=== PATIENT | male | born 1995 | race African-American/Black ===

== ENCOUNTER 2019-10-15 18:25 | Emergency (ER) | payer SELFPAY ==
--- NOTE | 2019-10-15 18:44 | ER Document Report ---
HPI - HPI Patient complains to provider of: URI Time Seen by Provider: 10/15/19 18:36 Onset: Other - 3 to 4 weeks Onset/Duration: Persistent Quality of pain: Achy Severity: Moderate Pain Level: 3 Associated Symptoms: Productive cough, Headache, Rhinnorhea, Sinus pain/drainage Exacerbated by: Coughing Relieved by: Denies Similar symptoms previously: Yes Recently seen / treated by doctor: No - ROS ROS below otherwise negative: Yes - CONSTITUTIONAL Constitutional: REPORTS: Chills - EENT EENT: REPORTS: Nasal Drainage-Purulent, Congestion - NEURO Neurology: REPORTS: Headache - RESPIRATORY Respiratory: REPORTS: Coughing - GASTROINTESTINAL Gastrointestinal: DENIES: Abdominal Pain, Nausea, Patient vomiting, Diarrhea, Constipation, Black / Bloody Stools - URINARY Urinary: DENIES: Dysuria, Urgency, Frequency - REPRODUCTIVE Reproductive: DENIES: :, Postmenopausal, Abnormal bleeding / discharge - MUSCULOSKELETAL Musculoskeletal: DENIES: Extremity pain, Back Pain, Neck Pain, Swelling - DERM Skin Color: Normal Skin Problems: None Past Medical History - Social History Smoking Status: Current Every Day Smoker - 4 cigarettes a day Smoking Education Provided: Yes - 4 minutes Frequency of alcohol use: Occasional Drug Abuse: Marijuana Lives with: Friend - Past Medical History Cardiac Medical History: Reports: None Pulmonary Medical History: Reports: Hx Tuberculosis - Latent tuberculosis EENT Medical History: Reports: None Neurological Medical History: Reports: None Endocrine Medical History: Reports: None Renal/ Medical History: Reports: None Malignancy Medical History: Reports None GI Medical History: Reports: None Musculoskeletal Medical History: Reports None Skin Medical History: Reports None Psychiatric Medical History: Reports: None Traumatic Medical History: Reports: Hx Fractures - Fractured jaw Infectious Medical History: Reports: None Past Surgical History: Reports: Hx Inguinal Hernia - Left, Hx Oral Surgery - Fracture job repair, Other - Repair of leg after dog bite - Immunizations Immunizations up to date: Yes Hx Diphtheria, Pertussis, Tetanus Vaccination: No Course - Vital Signs Vital signs: Temp Pulse Resp BP Pulse Ox 97.8 F 115 H 20 126/78 H 96 10/15/19 18:28 10/15/19 18:28 10/15/19 18:28 10/15/19 18:28 10/15/19 18:28
[2019-10-15] MEDS ORDERED: ALBUTEROL SULFATE 0.083% NEB 2.5 MG/3 ML AMPUL NEB ONE (18:49)
--- NOTE | 2019-10-15 18:49 | ER Document Report ---
ED Medical Screen (RME) - General Chief Complaint: Cold Symptoms Stated Complaint: COLD SYMPTOMS Time Seen by Provider: 10/15/19 18:36 Mode of Arrival: Ambulatory Information source: Patient Notes: 24-year-old male presented to ED for cough cold congestion facial pain and difficulty breathing for 3 weeks. He states he does smoke 4 cigarettes a day occasionally drinks and occasionally smokes pot. He has very diminished lung sounds at this time. His pulse is 98 with a O2 sat of 96%. With respirations of 26. He is afebrile at this time. He denies any history of asthma or COPD states he has had pneumonia in the past. I have greeted and performed a rapid initial assessment of this patient. A comprehensive ED assessment and evaluation of the patient, analysis of test results and completion of medical decision making process will be conducted by an additional ED providers. TRAVEL OUTSIDE OF THE [place] IN LAST 30 DAYS: No - Related Data Home Medications: denies Past Medical History - Social History Chew tobacco use (# tins/day): No Frequency of alcohol use: Social Drug Abuse: Marijuana Physical Exam - Vital signs Vitals: Temp Pulse Resp BP Pulse Ox 97.8 F 115 H 20 126/78 H 96 10/15/19 18:28 10/15/19 18:28 10/15/19 18:28 10/15/19 18:28 10/15/19 18:28 Course - Vital Signs Vital signs: Temp Pulse Resp BP Pulse Ox 97.8 F 115 H 20 126/78 H 96 10/15/19 18:28 10/15/19 18:28 10/15/19 18:28 10/15/19 18:28 10/15/19 18:28
[2019-10-15] MEDS ORDERED: METHYLPREDNISOLONE INJ 125 MG/2 ML SDV IV ONE (18:50)
[2019-10-15] MEDS ORDERED: IPRATROPIUM/ALBUTEROL 0.5-2.5 MG/3 ML AMPUL NEB ONE ×3 (18:50→18:56)
[2019-10-15] MEDS ORDERED: NORMAL SALINE 1000 ML 1,000 ML IV ONE (18:51)
[2019-10-15 19:33] LABS: ABSOLUTE MONOCYTES (AUTO) 0.9 10^3/uL (0.1-1.4); EOSINOPHILS % (AUTO) 0.2 % (0-6); MEAN CORPUSCULAR HEMOGLOBIN 27.1 pg (27.0-33.4); TOTAL CELLS COUNTED % (AUTO) 100 %
--- NOTE | 2019-10-15 19:35 | RADIOLOGY REPORT (SQ) ---
EXAM DESCRIPTION: CHEST 2 VIEWS COMPLETED DATE/TIME: 10/15/2019 7:22 pm REASON FOR STUDY: cough congestion short of breath COMPARISON: None. EXAM PARAMETERS: NUMBER OF VIEWS: two views TECHNIQUE: Digital Frontal and Lateral radiographic views of the chest acquired. RADIATION DOSE: NA LIMITATIONS: none FINDINGS: LUNGS AND PLEURA: No opacities, masses or pneumothorax. No pleural effusion. MEDIASTINUM AND HILAR STRUCTURES: No masses or contour abnormalities. HEART AND VASCULAR STRUCTURES: Heart normal size. No evidence for failure. BONES: No acute findings. HARDWARE: None in the chest. OTHER: No other significant finding. IMPRESSION: NO ACUTE RADIOGRAPHIC FINDING IN THE CHEST. TECHNICAL DOCUMENTATION: JOB ID: [id number] [employer]- All Rights Reserved Reading location - IP/workstation name: [email or web address]
[2019-10-15 19:37] LABS: ABSOLUTE BASOPHILS # (AUTO) 0.1 10^3/uL (0.0-0.2); ABSOLUTE NEUT (AUTO) 9.9 10^3/uL (1.7-8.2); BASOPHILS % (AUTO) 0.5 % (0-2); HEMATOCRIT 45.3 % (37.9-51.0); HEMOGLOBIN 15.4 g/dL (13.5-17.0); LYMPHOCYTES % (AUTO) 26.7 % (13-45); MEAN CORPUSCULAR HGB CONC 34.1 g/dL (32.0-36.0); MEAN CORPUSCULAR VOLUME 79 fl (80-97); MONOCYTES % (AUTO) 6.1 % (3-13); PLATELET COUNT 347 10^3/uL (150-450); RED BLOOD COUNT 5.71 10^6/uL (4.35-5.55); SEGMENTED NEUTROPHILS % (AUTO) 66.5 % (42-78)
[2019-10-15 19:54] LABS: ALBUMIN 4.5 g/dL (3.5-5.0); ALKALINE PHOSPHATASE 145 U/L (38-126); ANION GAP 12 (5-19); ASPARTATE AMINO TRANSFERASE 22 U/L (17-59); BILIRUBIN,DIRECT 0.2 mg/dL (0.0-0.4); BILIRUBIN,TOTAL 0.7 mg/dL (0.2-1.3); BLOOD UREA NITROGEN 11 mg/dL (7-20); CARBON DIOXIDE 26 mmol/L (22-30); CHLORIDE 104 mmol/L (98-107); GLUCOSE 102 mg/dL (75-110); POTASSIUM 4.1 mmol/L (3.6-5.0); TOTAL PROTEIN 7.9 g/dL (6.3-8.2)
[2019-10-15 20:51] LABS: APPEARANCE,URINE SLIGHTLY-CLOUDY; BILIRUBIN,URINE NEGATIVE (NEGATIVE); COLOR,URINE YELLOW; GLUCOSE, URINE NEGATIVE (NEGATIVE); KETONES,URINE 20 mg/dL (NEGATIVE); PROTEIN,URINE 30 mg/dL (NEGATIVE); URINE SPECIFIC GRAVITY 1.027
--- NOTE | 2019-10-15 21:54 | ER Document Report ---
HPI - HPI Time Seen by Provider: 10/15/19 18:36 Pain Level: 3 Notes: Patient is an otherwise healthy 24-year-old male presenting to the emergency department chief complaint of cough, congestion and generally not feeling well for 2 weeks now. He denies any nausea, vomiting or diarrhea. Denies any dysuria. He does report occasional fever. Denies any sore throat. - RESPIRATORY Respiratory: REPORTS: Coughing - REPRODUCTIVE Reproductive: DENIES: : Past Medical History - General Information source: Patient - Social History Smoking Status: Current Every Day Smoker Chew tobacco use (# tins/day): No Frequency of alcohol use: Social Drug Abuse: Marijuana Family History: Reviewed & Not Pertinent Patient has suicidal ideation: No Patient has homicidal ideation: No - Medical History Medical History: Negative Past Surgical History: Reports: Hx Orthopedic Surgery - Immunizations Immunizations up to date: Yes Hx Diphtheria, Pertussis, Tetanus Vaccination: Yes Vertical Provider Document - CONSTITUTIONAL Notes: PHYSICAL EXAMINATION: GENERAL: Well-appearing, well-nourished and in no acute distress. HEAD: Atraumatic, normocephalic. EYES: Pupils equal round and reactive to light, extraocular movements intact, sclera anicteric, conjunctiva are normal. ENT: Nares patent, oropharynx clear without exudates. Moist mucous membranes. NECK: Normal range of motion, supple without lymphadenopathy LUNGS: Breath sounds clear to auscultation bilaterally and equal. No wheezes rales or rhonchi. HEART: Regular rate and rhythm without murmurs ABDOMEN: Soft, nontender, nondistended abdomen. No guarding, no rebound. No masses appreciated. Musculoskeletal: Normal range of motion, no pitting or edema. No cyanosis. NEUROLOGICAL: Cranial nerves grossly intact. Normal speech, normal gait. Normal sensory, motor exams PSYCH: Normal mood, normal affect. SKIN: Warm, Dry, normal turgor, no rashes or lesions noted. - INFECTION CONTROL TRAVEL OUTSIDE OF THE [place] IN LAST 30 DAYS: No Course - Re-evaluation Re-evalutation: Patient appears well, nontoxic, alert, oriented and answering all questions appropriately. Patient does have urinary tract infection on urinalysis. Chest x-ray is negative. Work-up otherwise unremarkable. Patient will be discharged home with doxycycline for his urinary tract infection as well as prednisone and Tessalon Perles for his upper respiratory infection patient will follow-up with his primary care provider. ED return precautions discussed, patient verbalizes understanding and agreement with same. The patient's emergency department workup and current diagnosis were explained t o the patient and or family. Follow-up instructions were provided. Medications if prescribed were discussed. Instructions for when to return to the emergency department including specific worrisome symptoms were discussed with the patient and/or family. - Vital Signs Vital signs: Temp Pulse Resp BP Pulse Ox 97.8 F 98 26 H 126/78 H 96 10/15/19 18:28 10/15/19 18:47 10/15/19 18:47 10/15/19 18:28 10/15/19 18:47 - Laboratory Result Diagrams: 10/15/19 19:10 10/15/19 19:10 Laboratory results interpreted by me: 10/15/19 10/15/19 10/15/19 19:10 19:10 20:30 WBC 15.0 H RBC 5.71 H MCV 79 L Absolute Neuts (auto) 9.9 H Alkaline Phosphatase 145 H Urine Protein 30 H Urine Ketones 20 H Urine Urobilinogen 2.0 H Leukocyte Esterase Rfl SMALL H Discharge - Discharge Clinical Impression: UTI (urinary tract infection) Qualifiers: Urinary tract infection type: site unspecified Hematuria presence: without hematuria Qualified Code(s): N39.0 - Urinary tract infection, site not specified URI (upper respiratory infection) Qualifiers: URI type: unspecified viral URI Qualified Code(s): J06.9 - Acute upper respiratory infection, unspecified Condition: Stable Disposition: HOME, SELF-CARE Instructions: Upper Respiratory Illness ([facility]), Urinary Tract Infection ([facility]), Viral Syndrome ([facility]) Additional Instructions: He was seen in the emergency department and diagnosed with both urinary tract infection as well as a viral upper respiratory illness. Please take all medications as prescribed. Push fluids. Take Tylenol or ibuprofen for symptomatic relief of fever or body aches. Get plenty of rest. Follow-up with your primary care in 3 to 5 days if not improving. Prescriptions: Benzonatate [Tessalon Perles 100 mg Capsule] 200 mg PO Q8HP PRN #30 capsule PRN Reason: Prednisone [Deltasone 20 mg Tablet] 3 tab PO DAILY 5 Days #15 tablet Doxycycline Hyclate 100 mg PO BID #14 capsule
[2019-10-15 22:23] VITALS: BP 123/70
== END 2019-10-15 22:27 | disposition home or self-care (01) ==
LOC: ER 18:25
DX: N39.0 Urinary tract infection, site not specified (principal); J06.9 Acute upper respiratory infection, unspecified; R68.89 Other general symptoms and signs; F17.200 Nicotine dependence, unspecified, uncomplicated
CPT/HCPCS: 94640 ×2; 99283; 96361; 96374; 36415; 87040; 87086; 85025; 80053; 81001; 83605; 71046; J2930; J7030; J7620